=== PATIENT | male | born 1995 | race Caucasian/White ===

== ENCOUNTER 2016-09-16 02:56 | Emergency (ER) | payer BC, OTHER ==
[2016-09-16 01:49] LABS: INFLUENZA A POS (NEG); INFLUENZA B NEG (NEG)
[~2016-09-16 02:56] MED LIST: ACETAMINOPHEN; CLARITIN10 M3; CODEINE
[2016-09-16] MEDS ORDERED: TAMIFLU75 M1 DOB (03:30)
[2016-09-16] MEDS ORDERED: MOTRIN600 M1 PO (03:30)
== END 2016-09-16 03:30 | disposition home or self-care (01) ==
LOC: SED 02:56
PROVIDERS: Emergency Medicine
DX: J11.1 Influenza due to unidentified influenza virus with other respiratory manifestations (principal); R03.0 Elevated blood-pressure reading, without diagnosis of hypertension
CPT/HCPCS: 87651; 87804; 87880; 99283

== ENCOUNTER 2016-12-09 08:27 | Emergency (ER) | payer OTHER ==
[~2016-12-09 08:27] MED LIST changes: +MOTRIN600 M1 PO; +TAMIFLU75 M1 DOB
== END 2016-12-09 08:45 | disposition home or self-care (01) ==
LOC: SED 08:27
DX: H66.91 Otitis media, unspecified, right ear (principal); Z88.8 Allergy status to other drugs, medicaments and biological substances
CPT/HCPCS: 99282